=== PATIENT | female | born 1935 | race Caucasian/White ===

== ENCOUNTER → 2016-06-06 | Outpatient (CLI) | payer OTHER ==
[2016-06-06 17:50] LABS: BASO % 0.6 %; BASO ABS # 0.04 K/uL (0-0.2); COMPLETE YES; EOS % 13.5 %; HEMATOCRIT 30.8 % (37-47); IG% 0.4 %; LYMPH % 12.8 %; MEAN CELL VOLUME 95.1 fL (80-100); MEAN CORPUSCULAR HEMOGLOBIN 31.2 pg (25-34); MEAN CORPUSCULAR HGB CONC 32.8 g/dl (32-36); MEAN PLATELET VOLUME 11.3 fL (7.4-10.4); MONO % 10.8 %; NEUT % 61.9 %; PLATELET COUNT 248 K/uL (130-400); RED BLOOD COUNT 3.24 M/uL (4.2-5.4); WHITE BLOOD COUNT 7.04 K/uL (4.8-10.8)
[2016-06-06 18:01] LABS: ALT/SGPT 34 U/L (12-78); AST/SGOT 40 U/L (15-37); BLOOD UREA NITROGEN 26 mg/dl (7-18); BUN/CREATININE RATIO 23.5 (10-20); CALCIUM 9.1 mg/dl (8.5-10.1); CARBON DIOXIDE 19 mmol/L (21-32); CHLORIDE 111 mmol/L (98-107); GLUCOSE 96 mg/dl (70-99); POTASSIUM 4.5 mmol/L (3.5-5.1); SODIUM 138 mmol/L (136-145)
[2016-06-06 18:03] LABS: ALB/GLOB RATIO 0.4 (0.9-2); ALKALINE PHOSPHATASE 343 U/L (45-117)
== END | disposition home or self-care (01) ==
LOC: C.LABMFLN 10:42
PROVIDERS: ATTEND Family Medicine
DX: K74.60 Unspecified cirrhosis of liver (principal)

== ENCOUNTER → 2016-06-17 | Outpatient (CLI) | payer OTHER ==
[2016-06-17 17:58] LABS: BLOOD UREA NITROGEN 30 mg/dl (7-18); BUN/CREATININE RATIO 24.7 (10-20); CALCIUM 9.5 mg/dl (8.5-10.1); CARBON DIOXIDE 19 mmol/L (21-32); CHLORIDE 113 mmol/L (98-107); GLUCOSE 96 mg/dl (70-99); POTASSIUM 5.1 mmol/L (3.5-5.1); SODIUM 139 mmol/L (136-145)
== END | disposition home or self-care (01) ==
LOC: C.LABMFLN 12:18
PROVIDERS: ATTEND Family Medicine
DX: K74.60 Unspecified cirrhosis of liver (principal)